=== PATIENT | male | born 1990 | race Caucasian/White ===

== ENCOUNTER 2017-07-12 19:36 | Emergency (ER) | payer BC ==
[2017-07-12] MEDS ORDERED: Octyl 2-Cyanoacrylate 1 Tube ONE (20:14)
[2017-07-12] MEDS ORDERED: Octyl 2-Cyanoacrylate 1 Tube TOP ONE (20:22)
--- NOTE | 2017-07-12 20:27 | EDM.PDOC ---
ED HPI GENERAL MEDICAL PROBLEM - General Chief Complaint: Genitourinary Problem Stated Complaint: NOT FEELING WELL Time Seen by Provider: 07/12/17 20:00 Source of Information: Reports: Patient, Family - History of Present Illness INITIAL COMMENTS - FREE TEXT/NARRATIVE: History of present illness: 27-year-old male presenting to emergency department with chief complaint of abrasion to penis. Patient is accompanied by and states that they were just able to get there to sleep and were going to engage in sexual intercourse. They were somewhat aggressive and he felt a tear on the bottom of his penis. States there was immediate copious amounts of blood. He was able to get the bleeding stopped and noticed a small laceration to the underside of his penis. He has urinated since but does have some pain that general area. He denies any other trauma. On examination there is a 0.5 cm straight laceration to the frenulum. It is extremely superficial and has completely stopped bleeding. There is no swelling or erythema. Review of systems: As per history of present illness and below otherwise all systems reviewed and negative. Past medical history: As per history of present illness and as reviewed below otherwise noncontributory. Surgical history: As per history of present illness and as reviewed below otherwise noncontributory. Social history: No reported history of drug or alcohol abuse. Family history: As per history of present illness and as reviewed below otherwise noncontributory. Physical exam: General: Well developed well nourished, Alert and Orientated x3, In no acute distress HEENT: Atraumatic, normocephalic, pupils reactive, negative for conjunctival pallor or scleral icterus, mucous membranes moist, throat clear, neck supple, nontender, trachea midline. Lungs: Clear to auscultation, breath sounds equal bilaterally, chest nontender. Heart: S1S2, regular, negative for clicks, rubs, or JVD. Abdomen: Soft, nondistended, nontender. Negative for masses or hepatosplenomegaly. Negative for costovertebral tenderness. Pelvis: Stable nontender. Genitourinary: 0.5cm laceration to frenulum Rectal: Deferred. Extremities: Atraumatic, negative for cords or calf pain. Neurovascular unremarkable. Neuro: Awake, alert, oriented. Cranial nerves II through XII unremarkable. Cerebellum unremarkable. Motor and sensory unremarkable throughout. Exam nonfocal. Diagnostics: Therapeutics: Dermabond Impression: Superficial laceration of the frenulum. Instructed to refrain from sexual course for a minimum of 10-14 days. They will follow up with primary care. Instructed to return to emergency room if there was any signs of infection including but not limited to redness, increased pain, purulent discharge, difficulty with urination. Definitive disposition and diagnosis as appropriate pending reevaluation and review of above. Follow up given for primary care. . penis Pain Score (Numeric/FACES): 7 - Related Data Allergies Allergy/AdvReac Type Severity Reaction Status Date / Time No Known Allergies Allergy Verified 07/12/17 19:41 Home Meds: Home Meds . [No Known Home Meds] 07/12/17 [History] Past Medical History HEENT History: Reports: None Cardiovascular History: Reports: None Respiratory History: Reports: None Gastrointestinal History: Reports: None Genitourinary History: Reports: None Musculoskeletal History: Reports: None Neurological History: Reports: None Psychiatric History: Reports: Depression Endocrine/Metabolic History: Reports: None Dermatologic History: Reports: None - Infectious Disease History Infectious Disease History: Reports: Chicken Pox - Past Surgical History Male Surgical History: Reports: None Social & Family History - Family History Family Medical History: Noncontributory - Tobacco Use Smoking Status *Q: Never Smoker - Recreational Drug Use Recreational Drug Use: No ED ROS GENERAL - Review of Systems Review Of Systems: See Below ED EXAM, GENERAL - Physical Exam Exam: See Below Course - Vital Signs Last Recorded V/S: Last Vital Signs Temp 96.7 F 07/12/17 19:42 Pulse 119 H 07/12/17 19:42 Resp 20 07/12/17 19:42 BP 112/80 07/12/17 19:42 Pulse Ox 96 07/12/17 19:42 - Orders/Labs/Meds Meds: Medications Discontinued Medications Generic Name Dose Route Start Last Admin Trade Name Freq PRN Reason Stop Dose Admin Octyl Cyanoacrylate Confirm 07/12/17 20:14 Dermabond Advance Administered 07/12/17 20:15 Dose 1 applic .ROUTE .STK-MED ONE Departure - Departure Time of Disposition: 20:27 Disposition: Home, Self-Care 01 Condition: Good Clinical Impression: Laceration of penis without foreign body - Discharge Information Referrals: PCP,None [Primary Care Provider] -
== END 2017-07-12 20:38 | disposition home or self-care (01) ==
LOC: MW.ED 19:36
DX: S31.21XA Laceration without foreign body of penis, initial encounter (principal); X58.XXXA Exposure to other specified factors, initial encounter
CPT/HCPCS: 12001; 99283; A9270

== ENCOUNTER 2025-05-31 10:23 | Emergency (ER) | payer OTHER ==
[2025-05-31 11:33] LABS: BASOPHILS ABSOLUTE AUTO 0.04 K/uL (0.00-0.20); BASOPHILS PERCENT AUTO 0.6 % (0.0-1.0); EOSINOPHILS ABSOLUTE AUTO 0.17 K/uL (0.00-0.45); EOSINOPHILS PERCENT AUTO 2.7 % (0.0-6.0); IMMATURE GRAN ABSOLUTE AUTO 0.01 K/uL (0.00-0.05); IMMATURE GRAN PERCENT AUTO 0.2 % (0.0-0.4); LYMPHOCYTES ABSOLUTE AUTO 1.99 K/uL (1.00-4.80); LYMPHOCYTES PERCENT AUTO 31.8 % (24.0-44.0); MEAN PLATELET VOLUME 8.9 fL (9.4-12.4); MONOCYTES ABSOLUTE AUTO 0.38 K/uL (0.00-0.80); MONOCYTES PERCENT AUTO 6.1 % (0.0-8.0); NEUTROPHILS ABSOLUTE AUTO 3.66 K/uL (1.80-7.70); NEUTROPHILS PERCENT AUTO 58.6 % (41.0-71.0); NRBC ABSOLUTE 0.00 K/uL (0.00-0.02); NRBC PERCENT 0.0 /100WBC (0.0-0.2); PLATELET COUNT,PLT 236 K/uL (150-400); RED BLOOD CELL COUNT 4.95 M/uL (4.52-5.90); WHITE BLOOD CELL COUNT,WBC 6.25 K/uL (3.9-11.3)
[2025-05-31 12:22] LABS: A/G RATIO 1.3 (0.9-1.6); ALANINE AMINOTRANSFERASE,ALT 22.0 IU/L (14-63); ASPARTATE AMNIOTRANSFERASE,AST 20.0 IU/L (15-37); BILIRUBIN TOTAL 0.7 mg/dL (0.2-1.0); BLOOD UREA NITROGEN,BUN 16.0 mg/dL (7.0-18.0); CARBON DIOXIDE,CO2 27.9 mmol/L (21.0-32.0); CHLORIDE,CL 103.0 mmol/L (98-107); CREATININE 0.9 mg/dL (0.8-1.3); EST CRCL DRUG DOSING (CG) 111.89 mL/min; GLUCOSE RANDOM 90.0 mg/dL (74-106); POTASSIUM,K 4.4 mmol/L (3.5-5.1); PROTEIN TOTAL,TP 7.5 g/dL (6.4-8.2); SODIUM,NA 138.0 mmol/L (136-148)
[2025-05-31 12:23] LABS: ESTIMATED GFR 115.0 mL/min (>60)
[2025-05-31 12:30] LABS: APPEARANCE,URINE CLEAR; GLUCOSE,URINE NEGATIVE (NEGATIVE); OCCULT BLOOD,URINE NEGATIVE (NEGATIVE)
[2025-05-31 12:57] LABS: EPITHELIAL CELLS,URINE NOT SEEN (NONE-FEW)
== END 2025-05-31 13:22 | disposition home or self-care (01) ==
LOC: MW.ED 10:23
DX: R10.A1 Flank pain, right side (principal); Z72.0 Tobacco use; Z75.3 Unavailability and inaccessibility of health-care facilities
CPT/HCPCS: 36415; 74176; 74176-26; 80053; 81001; 85025; 99283; 99284